=== PATIENT | female | born 1955 | race Asian ===

== ENCOUNTER 2023-12-12 01:16 | Observation (INO) ==
[2023-12-12 02:16] LABS: INR 1.04 (0.83-1.13)
[2023-12-12 02:20] LABS: Albumin 4.4 g/dL (3.2-5.2); Albumin/Globulin Ratio 1.2 (1-3); Creatinine, Serum 0.93 mg/dL (0.51-0.95); Globulin 3.8 g/dL (2-4); Magnesium 1.7 mg/dL (1.9-2.7); Potassium 4.2 mmol/L (3.5-5.0); Total Bilirubin 0.6 mg/dL (0.2-1.0); Total Protein 8.2 g/dL (6.4-8.9); eGFR CKD-EPI 66.9 (>60)
[2023-12-12] MEDS ORDERED: Lactated Ringers 1000 ml BAG 1,000 ML IV ONE (02:21)
[2023-12-12 02:26] LABS: ABS Lymphocytes 0.6 10^3/uL (1.0-4.8); ABS Monocytes 0.4 10^3/uL (0.0-0.9); ABS Neutrophils 4.2 10^3/uL (1.5-7.6); ABS Nucleated RBC 0.01 10^3/ul; Eosinophil % 0.8 %; Hematocrit 35.7 % (35-45); Hemoglobin 11.4 g/dL (11.5-14.3); Lymphocyte % 11.6 %; Mean Corpuscular Hemoglobin 23.3 pg (27-33); Mean Corpuscular Hgb Conc 31.9 g/dL (31-36); Mean Corpuscular Volume 73.1 fL (80-97); Nucleated Red Blood Cells % 0.1 %/100WBC (0.0-0.8); Platelet Count 127 10^3/uL (150-450); Red Blood Count 4.88 10^6/uL (3.63-4.92); Red Cell Distribution Width 14.5 % (12-17); White Blood Count 5.2 10^3/uL (3.8-11.8)
[2023-12-12] MEDS ORDERED: Iohexol 350 (CONTRAST) 500 ML MDV IV ONE (05:01)
[2023-12-12] MEDS ORDERED: Amoxicillin/Clavul 875/125 TAB (Augmentin 875 tab) PO ONE (08:37)
[2023-12-12] MEDS ORDERED: cefTRIAXone 1 gm/50 mL D5W 1 GM/50 ML BAG IV ONE (09:23)
[2023-12-12 09:49] LABS: C Reactive Protein 8.31 mg/L (<8.01)
[2023-12-12] MEDS: Albuterol/Ipratropium NEB.SOL (2.5/0.5 MG) 3 ML NEB.SOLN INH SCH ×4 (10:21→23:39)
[2023-12-12 13:35] LABS: Hepatitis B Surface Antigen Positive (Nonreactive)
[2023-12-12 13:42] LABS: Hepatitis A Ab IgM Negative (Negative); Hepatitis B Core IgM Nonreactive (Nonreactive)
[2023-12-12 13:53] LABS: Hepatitis C Antibody Negative (Negative)
[2023-12-12] MEDS: Enoxaparin 40 MG/0.4 ML SYR SUBCUT SCH (14:33)
[2023-12-13] MEDS: Albuterol/Ipratropium NEB.SOL (2.5/0.5 MG) 3 ML NEB.SOLN INH SCH ×4 (03:50→18:01)
[2023-12-13] MEDS ORDERED: Acetaminophen IV 1 GM/100ML 1,000 MG/100 ML BAG IV ONE (05:30)
[2023-12-13 07:06] LABS: Albumin 3.8 g/dL (3.2-5.2); Albumin/Globulin Ratio 1.2 (1-3); Calcium 8.7 mg/dL (8.6-10.3); Creatinine, Serum 0.84 mg/dL (0.51-0.95); Globulin 3.3 g/dL (2-4); Magnesium 1.9 mg/dL (1.9-2.7); Potassium 3.2 mmol/L (3.5-5.0); Total Bilirubin 0.4 mg/dL (0.2-1.0); Total Protein 7.1 g/dL (6.4-8.9); eGFR CKD-EPI 75.6 (>60)
[2023-12-13 07:17] LABS: ABS Lymphocytes 1.3 10^3/uL (1.0-4.8); ABS Monocytes 0.4 10^3/uL (0.0-0.9); Hematocrit 31.4 % (35-45); Hemoglobin 10.2 g/dL (11.5-14.3); Lymphocyte % 27.3 %; Mean Corpuscular Hemoglobin 23.4 pg (27-33); Mean Corpuscular Hgb Conc 32.4 g/dL (31-36); Mean Corpuscular Volume 72.3 fL (80-97); Mean Platelet Volume 9.2 fL (7.5-11.2); Nucleated Red Blood Cells % 0.1 %/100WBC (0.0-0.8); Platelet Count 109 10^3/uL (150-450); Red Blood Count 4.35 10^6/uL (3.63-4.92); Red Cell Distribution Width 14.6 % (12-17); White Blood Count 4.7 10^3/uL (3.8-11.8)
[2023-12-13] MEDS ORDERED: Albuterol/Ipratropium NEB.SOL (2.5/0.5 MG) 3 ML NEB.SOLN ONE (07:32)
[2023-12-13] MEDS ORDERED: Albuterol/Ipratropium NEB.SOL (2.5/0.5 MG) 3 ML NEB.SOLN INH SCH ×2 (08:00)
[2023-12-13] MEDS ORDERED: Potassium Chlor 20 meq TAB.ER PO ONE (08:12)
[2023-12-13] MEDS: Enoxaparin 40 MG/0.4 ML SYR SUBCUT SCH (09:29)
[2023-12-13] MEDS: cefTRIAXone 1 gm/50 mL D5W 1 GM/50 ML BAG IV SCH (09:31)
[2023-12-13] MEDS: Azithromycin 500 mg/250 ml NS 500 MG/250 ML BAG IVPB SCH (10:53)
[2023-12-14] MEDS: Albuterol/Ipratropium NEB.SOL (2.5/0.5 MG) 3 ML NEB.SOLN INH SCH (01:54)
[2023-12-14] MEDS ORDERED: Albuterol/Ipratropium NEB.SOL (2.5/0.5 MG) 3 ML NEB.SOLN INH PRN (06:45)
[2023-12-14] MEDS: cefTRIAXone 1 gm/50 mL D5W 1 GM/50 ML BAG IV SCH (08:59)
[2023-12-14] MEDS: Azithromycin 500 mg/250 ml NS 500 MG/250 ML BAG IVPB SCH (09:53)
[2023-12-14 10:04] VITALS: BP 162/82
[2023-12-14 10:51] LABS: ABS Lymphocytes 1.3 10^3/uL (1.0-4.8); ABS Monocytes 0.3 10^3/uL (0.0-0.9); ABS Neutrophils 5.3 10^3/uL (1.5-7.6); ABS Nucleated RBC 0.01 10^3/ul; Hematocrit 34.9 % (35-45); Hemoglobin 11.2 g/dL (11.5-14.3); Mean Corpuscular Hemoglobin 23.5 pg (27-33); Mean Corpuscular Hgb Conc 32.2 g/dL (31-36); Mean Platelet Volume 8.9 fL (7.5-11.2); Nucleated Red Blood Cells % 0.1 %/100WBC (0.0-0.8); Platelet Count 120 10^3/uL (150-450); Red Blood Count 4.79 10^6/uL (3.63-4.92); Red Cell Distribution Width 15.2 % (12-17); White Blood Count 6.9 10^3/uL (3.8-11.8)
[2023-12-14 10:54] LABS: Albumin 4.2 g/dL (3.2-5.2); Albumin/Globulin Ratio 1.1 (1-3); Calcium 9.2 mg/dL (8.6-10.3); Creatinine, Serum 0.83 mg/dL (0.51-0.95); Globulin 3.8 g/dL (2-4); Magnesium 1.9 mg/dL (1.9-2.7); Phosphorus 3.5 mg/dL (2.5-5.0); Potassium 3.4 mmol/L (3.5-5.0); Total Bilirubin 0.3 mg/dL (0.2-1.0); eGFR CKD-EPI 76.7 (>60)
[2023-12-14] MEDS ORDERED: Potassium Chlor 20 meq TAB.ER PO ONE (11:08)
[2023-12-14] MEDS ORDERED: guaiFENesin 100 mg/5 ml LIQ unit dose cup PO PRN (11:11)
[2023-12-14 11:37] LABS: Ferritin 208.6 ng/mL (11-307)
[2023-12-14 12:26] LABS: Hepatitis B Surface Ab Not Immune (Immune)
[2023-12-16 16:33] LABS: Hepatitis Be Antigen Negative (Negative)
[2023-12-16 16:56] LABS: Hepatitis Be Antibody Positive (Negative)
[2023-12-17 13:48] LABS: Hepatitis B DNA Quantitative 11 IU/mL (Undetected)
== END 2023-12-14 12:20 | disposition home or self-care (01) ==
LOC: EDHOLD 01:16 → ED 01:16 → SUATTDRO 09:34 → MED 10:02
PROVIDERS: ADMIT Hospitalist; ATTEND Internal Medicine